=== PATIENT | male | born 1955 | race Caucasian/White ===

== ENCOUNTER 2022-11-26 03:30 | Inpatient (IN) | payer MEDICARE, SELFPAY ==
[2022-11-26] VITALS (54 sets, daily range): BP systolic 109–212; BP diastolic 61–139; PULSE 70–115; RESP 12–80; TEMP 36.5–37.1; O2SAT 74–100; BMI 26.6
--- NOTE | 2022-11-26 03:34 | DI.RAD.S_ITS ---
PROCEDURE: XR CHEST 1V INDICATIONS: Possible stroke TECHNIQUE: One view of the chest was acquired. COMPARISON: None. FINDINGS: Surgical changes and devices: None. Lungs and pleura: There is pulmonary vascular congestion. Atelectasis versus small infiltrates are noted in bilateral lower lung encinas. No pleural effusions or pneumothorax. Mediastinum: Mediastinal contours appear normal. Heart size is normal. Bones and chest wall: No suspicious bony lesions. Overlying soft tissues appear unremarkable. IMPRESSION: Mild congestion and mild bibasilar small infiltrate/atelectasis. No pleural effusion or pneumothorax. No significant discrepancies from preliminary reading. Dictated by: Ike Dumont M.D. on 11/26/2022 at 8:20 Approved by: Ike Dumont M.D. on 11/26/2022 at 8:21
--- NOTE | 2022-11-26 03:34 | DI.CT.S_ITS ---
PROCEDURE: CT STROKE INDICATIONS: Positive BE-FAST, Stroke symptoms TECHNIQUE: Noncontrast 4.5 mm thick angled axial sections acquired from the foramen magnum to the vertex, with coronal reformats. For radiation dose reduction, the following was used: automated exposure control, adjustment of mA and/or kV according to patient size. COMPARISON: None. FINDINGS: Image quality: Excellent. CSF spaces: Basal cisterns are patent. No extra-axial fluid collections. The ventricles are symmetric in size and shape. Brain: No intracranial bleeds or masses. There is cerebral volume loss for age, with resultant ventricular and sulcal prominence. There are periventricular and deep white matter chronic small vessel ischemic changes. There is intracranial internal carotid artery atherosclerosis. Skull and face: Calvarium and visualized facial bones appear intact, without suspicious lesions. Sinuses: Visualized sinuses and mastoids are clear. IMPRESSION: No acute large territorial infarct, intracranial hemorrhage or mass effect. Findings are concordant with preliminary interpretation provided by [facility]. This study fulfills neurological imaging criteria for inclusion or exclusion of acute stroke therapies based on available published neurological guidelines. Dictated by: Francisco Maldonado M.D. on 11/26/2022 at 7:46 Approved by: Francisco Maldonado M.D. on 11/26/2022 at 7:50
--- NOTE | 2022-11-26 03:35 | DI.CT.S_ITS ---
PROCEDURE: CT ANGIO HEAD AND NECK INDICATIONS: vomiting confusion HTN TECHNIQUE: After the administration of intravenous contrast, 1 mm thick sections acquired from the aortic arch through the [place]. Post-contrast 4.5 mm thick sections then re-acquired from the foramen magnum to the vertex. 3-dimensional jqzgvqx-fdzbohktw-[id number] (MIP) and/or volume rendering reformats were acquired of the central intracranial vasculature and neck separately. For radiation dose reduction, the following was used: automated exposure control, adjustment of mA and/or kV according to patient size. COMPARISON: None. FINDINGS: Image quality: Excellent. HEAD CT ANGIOGRAPHY: Anterior circulation: Intracranial internal carotid arteries are normal in size and flow. The flow within the paired anterior cerebral arteries is normal and symmetric. The flow within the middle cerebral arteries is normal and symmetric. The anterior communicating artery is seen. No aneurysms are seen. Posterior circulation: Visualized portions of the vertebral arteries demonstrate normal caliber, and join to form a normal appearing basilar artery. Flow within the posterior cerebral arteries is normal and symmetric. No aneurysms are seen. NECK CT ANGIOGRAPHY: Carotid system: The great vessels demonstrate a conventional anatomy as they arise from the aortic arch. The origins of the common carotid arteries appear patent. The common carotid arteries demonstrate normal caliber and courses. The bifurcation regions are both widely patent. The internal carotid arteries demonstrate normal calibers and courses. Atherosclerotic vascular calcifications are present throughout. Posterior circulation: The origins of the vertebral arteries both appear widely patent. Atherosclerosis at the takeoff of the right vertebral artery. The more superior extracranial portions of both vertebral arteries also demonstrate normal courses and calibers. They join to form a normal appearing basilar artery. There is focal calcification in moderate stenosis of the distal left vertebral artery immediately distal to the PICA origin with approximately 50% stenosis. Soft tissues: Visualized neck soft tissues demonstrate no suspicious abnormalities. Bones: No suspicious bony lesions. degenerative changes of the cervical spine.. Visualized cervical spine appears normally aligned. IMPRESSION: Atherosclerotic vascular calcifications are noted throughout, as described above. All major vessels remain patent in the head and neck without hemodynamically significant stenosis, occlusion, aneurysm or AVM. Any quantitative measurements of stenosis were performed using NASCET criteria. Dictated by: Francisco Maldonado M.D. on 11/26/2022 at 7:51 Approved by: Francisco Maldonado M.D. on 11/26/2022 at 7:58
[2022-11-26] MEDS: ONDANSETRON 4 MG/2 ML INJ IV ×2 (03:45→10:10)
[2022-11-26 03:48] LABS: Add Manual Diff / Slide Review NO; Basophils Absolute Auto 100 /uL (0-100); Basophils Percent Auto 0.7 % (0-2); Eosinophils Absolute Auto 100 /uL (0-450); Eosinophils Percent Auto 0.6 % (2-4); Hematocrit 51.4 % (41-53); Hemoglobin 17.5 g/dL (13.5-17.5); Lymphocytes Absolute Auto 2700 /uL (1100-4500); Lymphocytes Percent Auto 27.5 % (25-40); Mean Corpuscular HGB Conc 33.9 % (30-36); Mean Corpuscular Volume 97.4 fL (80-100); Monocytes Absolute Auto 1400 /uL (0-900); Monocytes Percent Auto 14.1 % (3-14); Neutrophils Absolute Auto 5600 /uL (1500-7000); Neutrophils Percent Auto 57.1 % (50-75); Platelet Count 225 X10^3/uL (150-400); Red Blood Cell Count 5.28 X10^6/uL (4.5-5.9); White Blood Cell Count 9.7 X10^3/uL (4.5-11.0)
[2022-11-26 03:52] LABS: Prothrombin Time 11.7 SECONDS (10.1-12.7)
[2022-11-26] MEDS: LORazepam 2 MG/ML INJ IV ×3 (03:52→20:43)
[2022-11-26 03:55] LABS: PTT Partial Thromboplastin Tim 31 SECONDS (26-36)
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
[2022-11-26 03:58] LABS: Albumin 5.1 g/dL (3.5-5.0); Albumin Globulin Ratio 1.1 (1.0-2.8); Alkaline Phosphatase 102 U/L (38-126); Aspartate Aminotransferase 87 IU/L (17-59); BUN Creatinine Ratio 10.1 (6-22); Bilirubin Total 1.1 mg/dL (0.2-1.3); Blood Urea Nitrogen 12 mg/dL (9-20); Calcium 9.3 mg/dL (8.4-10.2); Carbon Dioxide 12 mmol/L (22-32); Chloride 97 mmol/L (98-107); Creatine Kinase 304 U/L (55-170); Estimated Glomerular Filt Rate > 60 mL/min (>60); Globulin 4.6 g/dL (1.7-4.1); Glucose 134 mg/dL (80-110); HEMOLYSIS < 15 (0-50); Lactate (Lactic Acid) 10.5 mmol/L (0.7-2.1); Magnesium 1.6 mg/dL (1.6-2.3); Potassium 3.4 mmol/L (3.4-5.1); Sodium 138 mmol/L (137-145); Total Protein 9.7 g/dL (6.3-8.2)
[2022-11-26] MEDS: SODIUM CHLORIDE 0.9% 1,000 ML 1000 ML IV (04:00)
[2022-11-26 04:04] LABS: Alanine Aminotransferase 71 IU/L (<50)
[2022-11-26 04:09] LABS: Troponin I < 0.012 ng/mL (0.01-0.034)
[2022-11-26 04:33] LABS: Acetaminophen < 10 ug/mL (10-30); Ethanol (ETOH) < 10 mg/dL; Salicylate < 1.0 mg/dL (<20)
[2022-11-26 04:40] LABS: Procalcitonin 0.11 ng/mL (<0.5)
[2022-11-26] MEDS: SODIUM CHLORIDE 0.9% 500 ML 1000 ML IV (04:52)
[2022-11-26 05:00] LABS: Appearance Urine UA CLEAR; Bilirubin Urine UA NEGATIVE (NEGATIVE); Color Urine UA YELLOW; Glucose Urine UA NEGATIVE (Negative); Ketones Urine UA 1+ (NEGATIVE); Leukocyte Esterase Urine UA NEGATIVE (NEGATIVE); Nitrite Urine UA NEGATIVE (Negative); Occult Blood Urine UA 2+ (Negative); Protein Urine UA 2+ (Negative); Urobilinogen Urine UA 0.2 E.U./dL (0.2)
[2022-11-26 05:08] LABS: UR Morphine/Opiate cutoff 300 Negative (Negative); Ur Creatinine 20 (Normal); Urine Amphetamines Negative (Negative); Urine Barbiturates Negative (Negative); Urine Benzodiazepines Negative (Negative); Urine Cocaine Negative (Negative); Urine MDMA Negative (Negative); Urine Methadone Negative (Negative); Urine Methamphetamines Negative (Negative); Urine Oxycodone Negative (Negative); Urine Phencyclidine Negative (Negative); Urine Tetrahydrocannabinol Positive (Negative); Urine Tricyclic Antidepressant Negative (Negative); Urine pH 6 (Normal)
[2022-11-26 05:21] LABS: Bacteria Urine None Seen; Culture Indicated Urine Cult Not Indicated; RBC Urine None Seen (0-5/HPF); Squamous Epithelial Cell Urine None Seen (0-5/HPF); WBC Urine None Seen (0-5/HPF)
[2022-11-26 05:36] LABS: Prolactin 74.5 ng/mL (3.7-17.9)
--- NOTE | 2022-11-26 05:36 | PC.NURSE ---
2L IV bolus completed. Repeat lactate drawn and sent to lab. RN assisted patient to standing position to urinate. Pt needing lots of support to stand, also used walker. Pt needing lots of prompting. Very unsteady without assistance, body tremors noted. Linen on stretcher also noted to be soaked in urine. Bed cleaned and new linens placed on stretcher. Warm blankets provided to patient. Call light within reach.
[2022-11-26 05:43] LABS: Reflexed Lactate in 2 Hours Y
[2022-11-26 06:01] LABS: Lactate 2HR (Lactic Acid Rflx) 2.3 mmol/L (0.7-2.1)
[2022-11-26] MEDS: cefTRIAXone 2,000 MG in SODIUM CHLORIDE 0.9% 100 ML 200 MG IV (06:31)
[2022-11-26 06:45] LABS: NT-proBNP (BNP-Adult 18+) 1070 pg/mL (<125)
[2022-11-26] MEDS: AZITHROMYCIN 500 MG in DEXTROSE 5% IN WATER 250 ML 250 MG IV ×2 (06:51→17:36)
[2022-11-26 07:23] LABS: Adenovirus Not Detected (Not Detect); B. parapertussis Not Detected (Not Detecte); Bordetella pertussis Not Detected (Not Detecte); Chlamydophila pneumoniae Not Detected (Not Detect); Coronavirus 229E Not Detected (Not Detect); Coronavirus HKU1 Not Detected (Not Detect); Coronavirus NL 63 Not Detected (Not Detect); Coronavirus OC43 Not Detected (Not Detect); Human Metapneumovirus Not Detected (Not Detect); Human Rhinovirus/Enterovirus Not Detected (Not Detect); Influenza A Not Detected (Not Detect); Influenza B Not Detected (Not Detect); Mycoplasma pneumoniae Not Detected (Not Detect); Parainfluenza Virus 1 Not Detected (Not Detect); Parainfluenza Virus 2 Not Detected (Not Detect); Parainfluenza Virus 3 Not Detected (Not Detect); Parainfluenza Virus 4 Not Detected (Not Detect); Respiratory Syncytial Virus Not Detected (Not Detect); SARS- CoV-2 Not Detected (Not Detecte)
--- NOTE | 2022-11-26 08:36 | PC.NURSE ---
Patient reports history of sleep apnea. Patient desats when asleep into low 80's Dr Camarena aware. Patient resp even and unlabored.
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
[2022-11-26 10:24] LABS: MRSA (Nasal) PCR Not Detected (Not Detect)
[2022-11-26] MEDS: AMLODIPINE 5 MG TABLET PO (11:16)
[2022-11-26 12:18] LABS: Lactate (Lactic Acid) 0.9 mmol/L (0.7-2.1)
[2022-11-26] MEDS: SODIUM CHLORIDE 0.9% 1,000 ML 100 ML IV ×2 (13:58→23:59)
[2022-11-26] MEDS: THIAMINE 100 MG TABLET PO (14:02)
[2022-11-26] MEDS: levETIRAcetam 1,000 MG in SODIUM CHLORIDE 0.9% 100 ML 440 MG IV (14:46)
--- NOTE | 2022-11-26 14:51 | PC.NURSE ---
Addendum entered by Sonja Souza R.N. 11/26/22 15:11: When pt was seizing, RN pulled ativan from Pyxis under ativan order that was for CIWA protocol (not override pull). RN used this ativan for seizure - not for CIWA. Up until this point in shift, pt's CIWA scores were below 8. RN's priority was medicating pt to stop seizure as soon as possible. Original Note: At approximately 1408, RN assessed pt and started IV fluids. RN left the room to get pt's PO meds and when RN returned about 1410, pt was non-verbal, non-responsive, shaking and had blank stare in his eyes. RN called for help and when help promptly arrived, RN retrieved ativan 2mg from Pyxis. Another RN called the doctor, and the RN administered ativan with permission from provider. Provider came bedside. After giving ativan, pt's seizure ended. Pt vital signs taken and pt appeared to return to baseline shortly after, without injury.
[2022-11-26] MEDS: cefTRIAXone 1,000 MG in SODIUM CHLORIDE 0.9% 100 ML 200 MG IV (16:52)
--- NOTE | 2022-11-26 18:48 | PC.NURSE ---
Pt assessment and VS returned to baseline post-seizure.
[2022-11-27] VITALS (43 sets, daily range): BP systolic 109–173; BP diastolic 56–93; PULSE 69–88; RESP 6–28; TEMP 36.7–36.8; O2SAT 86–100
[2022-11-27] MEDS: levETIRAcetam 1,000 MG in SODIUM CHLORIDE 0.9% 100 ML 440 MG IV ×2 (02:01→14:09)
[2022-11-27] MEDS: LORazepam 2 MG/ML INJ IV (03:53)
[2022-11-27 06:11] LABS: Blood Urea Nitrogen 7 mg/dL (9-20); Calcium 7.6 mg/dL (8.4-10.2); Carbon Dioxide 27 mmol/L (22-32); Chloride 102 mmol/L (98-107); Estimated Glomerular Filt Rate > 60 mL/min (>60); Glucose 85 mg/dL (80-110); HEMOLYSIS 21 (0-50); Potassium 3.2 mmol/L (3.4-5.1); Sodium 135 mmol/L (137-145)
[2022-11-27 06:14] LABS: Add Manual Diff / Slide Review NO; Basophils Absolute Auto 0 /uL (0-100); Basophils Percent Auto 0.5 % (0-2); Eosinophils Absolute Auto 0 /uL (0-450); Eosinophils Percent Auto 0.6 % (2-4); Hematocrit 42.5 % (41-53); Hemoglobin 14.5 g/dL (13.5-17.5); Lymphocytes Absolute Auto 1100 /uL (1100-4500); Lymphocytes Percent Auto 14.4 % (25-40); Mean Corpuscular HGB Conc 34.2 % (30-36); Mean Corpuscular Hemoglobin 32.6 PG (26-34); Mean Corpuscular Volume 95.4 fL (80-100); Monocytes Absolute Auto 1000 /uL (0-900); Neutrophils Absolute Auto 5800 /uL (1500-7000); Neutrophils Percent Auto 72.5 % (50-75); Platelet Count 162 X10^3/uL (150-400); Red Blood Cell Count 4.46 X10^6/uL (4.5-5.9); Red Cell Distribution Width 14.7 % (11.6-14.8); White Blood Cell Count 7.9 X10^3/uL (4.5-11.0)
[2022-11-27] MEDS: MULTIVITAMIN 1 TABLET 1 TAB PO (08:02)
[2022-11-27] MEDS: AMLODIPINE 5 MG TABLET PO ×2 (08:02→17:11)
[2022-11-27] MEDS: THIAMINE 100 MG TABLET PO (08:02)
[2022-11-27] MEDS: POTASSIUM CHLORIDE 20 MEQ TAB 40 MEQ PO ×2 (09:06→14:20)
[2022-11-27] MEDS: FOLIC ACID 1 MG TABLET PO (09:07)
[2022-11-27 09:35] LABS: Magnesium 1.5 mg/dL (1.6-2.3)
[2022-11-27] MEDS: ENOXAPARIN 40 MG/0.4 ML SYRINGE SUBCUT (10:31)
--- NOTE | 2022-11-27 11:33 | PC.NURSE ---
Around 0900 RN spoke with hospitalist and asked provider about drawing Mg labs for this am and if RN could stop fluids and advance diet as tolerated. Provider told RN that these tests/interventions were appropriate.
[2022-11-27] MEDS: MAGNESIUM CHLORIDE 64 MG TABLET 128 MG PO (12:01)
--- NOTE | 2022-11-27 13:40 | PT.IIE ---
Current Diagnoses Alcohol dependence with withdrawal, unspecified (11/26/22) Surgical History (Last Updated 11/26/22 @ 10:46 by Dyllan Vasquez MD) History of appendectomy Medical History (Last Updated 11/26/22 @ 10:45 by Dyllan Vasquez MD) Alcohol dependence Dementia HTN (hypertension) Physical Therapy Inpatient Evaluation/Re-Eval M1 PT/OT-IP Prior Functional Status Start: 11/27/22 14:06 Freq: NEEDED Status: Active Protocol: Document 11/27/22 13:40 AB (Rec: 11/27/22 14:20 AB [id number]) Medical Review Prior Functional Status Medical History Reviewed Yes Communication able to make needs known Mobility and Gait pt stated that he is modified independent with all mobilities and ambulation without AD but uses a SPC for outdoor long distance walking Social History Household Members none Living Arrangements [facility] Facility Number of Floors (Floors) Two Floors Number of Stairs To Enter/Railing? pt lives at [facility] independent living : pt lives on the first floor Home Environment Standard Height Toilet,Walk in Shower Home Equipment Straight Cane,Hand Held Shower ,Grab Bars Near Toilet,Grab Bars In Shower Additional Social History Comment No assistance provided at the independent living but provides meals M2 PT-IP Current Condition Start: 11/27/22 14:06 Freq: NEEDED Status: Active Protocol: Document 11/27/22 13:40 AB (Rec: 11/27/22 14:20 AB [id number]) Physical Therapy Current Condition Current Condition Evaluation Date 11/27/22 Treatment Diagnosis alcohol withdrawal with seizure; difficulty in walking Onset Date 11/26/22 M3 PT-IP Subjective Start: 11/27/22 14:06 Freq: NEEDED Status: Active Protocol: Document 11/27/22 13:40 AB (Rec: 11/27/22 14:20 AB [email or web address]) Subjective Physical Therapy Visit Type Type Initial Evaluation Visit Start Time 13:40 Visit Stop Time 14:00 Total Visit Minutes 20 Number of BINDERY TECHNICIAN Visits 0 Physical Therapy Visit Comments Patient Comments pt is agreeable to do PT Therapy Pain Assessment Pain Present Pain Present Denied Pain M4 PT-IP Mobility and Gait Start: 11/27/22 14:06 Freq: NEEDED Status: Active Protocol: Document 11/27/22 13:40 AB (Rec: 11/27/22 14:20 AB [email or web address]) PT-Bed Mobility Assessment Supine to Sit Supine to Sit Standby Assistance Sit to Supine Sit to Supine Standby Assistance PT-Transfer Assessment Sit to and From Stand Sit to and from Stand Standby Assistance Equipment Transfer Assistive Device Gait Belt,Front Wheeled Walker Orthotic/Prosthetic Devices or Brace: No Comments Mobility Comments pt supine in bed and agreeable to do PT. completed supine to sit SBA. able to sit on EOB SBA. completed sit to stand SBA and ambulated in room using FWW SBA to CGA ~ 30 ft. presents with ataxic shuffling wide based gait. pt can be impulsive. assessed ambulation using SPC and completed ~ 20 ft SBA to CGA. Assessed ambulation without AD and completed 20 ft CGA and (+) LOB but able to recover with holding on to the wall. pt requested to go back to bed . completed sit to supine SBA. positioned pt in bed. call light and table placed within reach. Gait Assessment Gait Gait Assistance Required: Standby Assistance,Contact Guard Assist Distance (Feet) 30 Able to Maintain Weight Bearing Status Yes During Gait Assistive Devices Assistive Device None,Gait Belt,Straight Cane, Front Wheeled Walker Orthotic/Prosthetic Devices or Brace: No Gait Deviations General Gait Pattern Ataxic,Decreased Stride Length ,Decreased Feet Clearance,Step -to Gait,Wide Based Gait Factors Limiting Gait Function Factors Limiting Gait Function Decreased Activity Tolerance, Decreased Strength,Limited Range of Motion,Poor Balance, Poor Safety Awareness PT-Balance Assessment Sitting Balance and Reactions Static Sitting Balance Ability Normal Dynamic Sitting Balance Ability Good Standing Balance and Reactions Static Standing Balance Ability Fair Dynamic Standing Balance Ability Fair Device Used SPC M5 PT-IP Objective Assessments Start: 11/27/22 14:06 Freq: NEEDED Status: Active Protocol: Document 11/27/22 13:40 AB (Rec: 11/27/22 14:20 [facility] Orientation Orientation/Cognition Level of Alertness Alert Orientation Name,Place,Situation Language Function Ability No Deficits Noted Safety Awareness Decreased Safety Awareness Gross Range of Motion Lower Extremity ROM Assessment Within Functional Limits Strength Lower Extremity Strength Assessment Within Functional Limits Muscle Tone Muscle Tone WNL Yes M6 PT-IP Treatment Start: 11/27/22 14:06 Freq: NEEDED Status: Active Protocol: Document 11/27/22 13:40 AB (Rec: 11/27/22 14:20 [facility] Physical Therapy Treatment Education Education Provided Safety M7 PT-IP Assessment and Plan Start: 11/27/22 14:06 Freq: NEEDED Status: Active Protocol: Document 11/27/22 13:40 AB (Rec: 11/27/22 14:20 AB [id number]) PT Summary Assessment and Plan Potential Rehabilitation Potential Fair Status of Condition at Evaluation Evolving Summary Impairments Pain,ROM,Strength,Balance, Coordination,Sensation,Tone, Cognition,Bed Mobility, Transfers,Gait,Activity Tolerance Assessment Summary pt admitted for alcohol withrawal with seizure. pt currently requiring SBA for bed mobility. Assessed ambulation using FWW, SPC and without AD. Recommedning use of FWW/SPC at this time for safety. pt presents with unsteady shuffling gait and more evidenced without use of AD with (+) LOB. will continue to assess pt's progress while here in the hospital. pt will require HHPT when pt d/c home. Goals Bed Mobility Goal Independent Transfer Goal Independent,Cane,Front Wheeled Walker Gait Goal Independent,Cane,Front Wheel Walker Gait Distance 200 Other Goals improve transfers and ambulation without AD SBA 300 ft Days to Meet Goals 10 Frequency of Treatment Frequency Of Treatment Once a Day Treatment Plan Physical Therapy Treatment Plan Bed Mobility Training,Transfer Training,Gait Training, Therapeutic Exercise,Balance Retraining,Discharge Planning, Neuromuscular Re-ed, Coordination Retraining Precautions Other Precautions seizure Recommendations To Nursing Amount of Assist Needed 1 Person Assist Discharge Recommendations PT Discharge Recommendations Home with Assistance,Home Health Equipment Needed for Home Before FWW if not safe with SPC/ Discharge without AD Transportation Needs at Discharge Private Vehicle
--- NOTE | 2022-11-27 16:18 | CM.DANOTE ---
Initial DCP Assessment Note Pt is a 67 yo male, resident at [facility] in [place], arrives via EMS with altered mental status, only THC+ no BAL, PMH includes heavy alcohol use. Admitted for medical management of suspected alcohol w/d with w/d seizure PCP: Yasmeen Yeh Payer: FREDI TORRES Reviewed chart, pt discussed in multidisciplinary rounds this morning. Supposedly patient not welcome back to [facility] but not confirmed with [facility] staff so placed call to [facility] this morning and learned that patient lives in an independent apt and is welcome back upon discharge however has been given an eviction notice and is required to vacate by January 08, 2023 According to RN Savage, ex spouse Mitra P# [phone] is concerned about patient and has told staff that he cannot live with she and their daughter Shena Met w/patient this afternoon to introduce self and role. Patient A+O, says he plans to return to [facility] and knows he needs to move by Jan 08. Patient is hopeful to find his own apt vs house and says I have plenty of money. Discussed HH services and patient says he sees the PT at [facility] and may not need this service, asked that CM team check again tomorrow Patient denies having a problem with alcohol use says that I have cut way down, patient had been drinking approx 3 glasses of whiskey daily According to PT Grisel, patient is cleared for DC home, suggests HH and that a family member assist in patient's transition home, if someone is available Patient expects his daughter will agree to transport home and if not he can get a taxi home Plan: Discharge likely tomorrow[facility], w/family to transport, r/o need for HH RN updated VIANNEY Esquivel Discharge Planning/Care Management CM Discharge Assessment Start: 11/27/22 16:13 Freq: Status: Active Protocol: Document 11/27/22 16:13 JASS (Rec: 11/27/22 16:17 JASS [id number]) Discharge Planning Assessment Assigned Ammonia Refrigeration Technician VIANNEY Singer` DPOA/Assigned Designee Name Shena Rogers, daughter Contact Information [phone] Advance Directives? No History Provided By Patient,Medical Record Prior Living Arrangements [facility] Facility Comment [facility] Household Members none Type of transporation used prior to Relies on Others admit Comment Daughter provides transport Willing to Return to Facility? Yes Independent with ADL's Yes Is patient alert and oriented? Yes Needs Assistance With Meal Prep Patient/Family Preference Home with Home Health Barriers to Discharge No Discharge Plan Home Transportation Arrangement Daughter vs taxi Additional Comment r/o need for HH upon discharge . Patient unsure he wants HH says he gets PT at [facility]
--- NOTE | 2022-11-27 16:38 | PM.PN.1 ---
Subjective Subjective Interval history: Feeling much better. Eating well. No new concerns. In a good mood. Interacting appropriately. Exam Vital Signs (past 8 hours): - 11/27/22 09:00 11/27/22 09:01 11/27/22 09:01 Pulse Rate 80 82 Blood Pressure 156/93 H Pulse Oximetry 95 87 L Oxygen Delivery Method 11/27/22 09:39 11/27/22 09:39 11/27/22 10:00 Pulse Rate 85 Blood Pressure 152/76 H 144/75 H Pulse Oximetry Oxygen Delivery Method 11/27/22 10:00 11/27/22 10:30 11/27/22 10:31 Pulse Rate 87 87 87 Blood Pressure Pulse Oximetry Oxygen Delivery Method 11/27/22 10:31 11/27/22 10:40 11/27/22 11:00 Pulse Rate 86 Blood Pressure 149/86 H 141/82 H Pulse Oximetry Oxygen Delivery Method 11/27/22 12:00 11/27/22 11:30 11/27/22 11:43 Pulse Rate 88 Blood Pressure 148/76 H Pulse Oximetry Oxygen Delivery Method Room Air 11/27/22 12:00 11/27/22 12:00 11/27/22 12:30 Pulse Rate 86 Blood Pressure 120/77 147/83 H Pulse Oximetry Oxygen Delivery Method 11/27/22 12:30 11/27/22 13:00 11/27/22 13:00 Pulse Rate 83 80 Blood Pressure 143/80 H Pulse Oximetry Oxygen Delivery Method 11/27/22 16:00 Pulse Rate Blood Pressure Pulse Oximetry Oxygen Delivery Method Room Air Fraction of Inspired Oxygen 45 Oxygen Delivery Method Room Air Oxygen Flow Rate 8 Narrative Exam Narrative: Oriented to person, place, and time. NAD Fluent speech Normal head EOM normal, anicteric sclera and symmetric pupils. Neck supple, Normal thyroid, normal JVP. Lungs clear, normal effort,. Heart regular and without murmur. Abdomen soft , non-tender No leg edema No skin rash Normal cranial nerves and strength of arms and legs. Objective Labs 11/27/22 05:33 11/27/22 05:33 Labs: Laboratory Results - last 24 hr 11/27/22 11/27/22 11/27/22 05:33 05:33 05:33 WBC 7.9 RBC 4.46 L Hgb 14.5 Hct 42.5 MCV 95.4 MCH 32.6 MCHC 34.2 RDW 14.7 Plt Count 162 Neut % (Auto) 72.5 Lymph % (Auto) 14.4 L Dale % (Auto) 12.0 Eos % (Auto) 0.6 L Baso % (Auto) 0.5 Neut # (Auto) 5800 Lymph # (Auto) 1100 Dale # (Auto) 1000 H Eos # (Auto) 0 Baso # (Auto) 0 Sodium 135 L Potassium 3.2 L Chloride 102 Carbon Dioxide 27 BUN 7 L Creatinine 0.78 Estimated GFR > 60 BUN/Creatinine Ratio 9.0 Glucose 85 Calcium 7.6 L Magnesium 1.5 L PFSH Medical History (Updated 11/26/22 @ 10:45 by Dyllan Vasquez MD) Alcohol dependence Dementia HTN (hypertension) Surgical History (Updated 11/26/22 @ 10:46 by Dyllan Vasquez MD) History of appendectomy Family History (Updated 11/26/22 @ 10:46 by Dyllan Vasquez MD) Other Hypertension Social History (Updated 11/26/22 @ 10:47 by Dyllan Vasquez MD) household members: none Smoking Status: Former smoker alcohol intake: current additional social history: Lives a [facility]. No smoking, uses alcohol. Assessment & Plan Assessment & Plan narrative: 1. Possible alcohol withdrawal and withdrawal seizure, POA. On Keppra 1000 mg p.o. b.i.d. Possible component of low magnesium being contributory. Magnesium replacement completed, follow magnesium level. 2. Probable alcohol dependence, POA. Not ready to completely quit indicates that he is decreasing his intake. Only drinks whiskey on ice. 3. Untreated hypertension, POA. Being treated with hydralazine IV q.6h as needed. Initiate increase in amlodipine to 10 mg daily. Follow blood pressure readings. 4. Concern for Mild lactic acidosis, POA. Lactate level was normal. 5. Possible encephalopathy, POA. Check ammonia level in the morning. 6. Paranoid ideation, POA. Not currently. Continue to follow clinically. 7. Chest x-ray showing mild bibasilar infiltrate consistent with pneumonia. Has been on ceftriaxone and azithromycin. Transitioned to oral Augmentin. Follow labs. Follow labs and clinically. Code status: Full code DVT prophylaxis: Enoxaparin 40 mg subQ daily Surrogate decisionmaker: Shena Cunningham, daughter Quality VTE Deep Vein Thrombosis/Pulmonary Embolism Present on Admission: No
[2022-11-27] MEDS: levETIRAcetam 250 MG TABLET 1000 MG PO (21:43)
[2022-11-27] MEDS: AMOXICILLIN/CLAV 500/125 MG 1 TAB PO (21:43)
[2022-11-28 01:00] VITALS: BP 158/87; PULSE 78; RESP 17; TEMP 36.6; O2SAT 98
[2022-11-28 04:00] VITALS: BP 160/96; PULSE 80; RESP 19; TEMP 36.5; O2SAT 97
[2022-11-28 04:25] LABS: Add Manual Diff / Slide Review NO; Basophils Absolute Auto 0 /uL (0-100); Basophils Percent Auto 0.5 % (0-2); Eosinophils Absolute Auto 100 /uL (0-450); Eosinophils Percent Auto 1.3 % (2-4); Hematocrit 45.7 % (41-53); Hemoglobin 15.5 g/dL (13.5-17.5); Lymphocytes Absolute Auto 1100 /uL (1100-4500); Lymphocytes Percent Auto 16.1 % (25-40); Mean Corpuscular Hemoglobin 32.6 PG (26-34); Mean Corpuscular Volume 95.7 fL (80-100); Monocytes Absolute Auto 800 /uL (0-900); Monocytes Percent Auto 11.4 % (3-14); Neutrophils Absolute Auto 4900 /uL (1500-7000); Neutrophils Percent Auto 70.7 % (50-75); Platelet Count 172 X10^3/uL (150-400); Red Blood Cell Count 4.77 X10^6/uL (4.5-5.9); Red Cell Distribution Width 14.7 % (11.6-14.8)
[2022-11-28 04:29] LABS: Ammonia (NH3) < 9 umol/L (9-30)
[2022-11-28] MEDS: LORazepam 2 MG/ML INJ IV (04:29)
[2022-11-28 04:30] LABS: BUN Creatinine Ratio 11.7 (6-22); Blood Urea Nitrogen 9 mg/dL (9-20); Calcium 8.4 mg/dL (8.4-10.2); Carbon Dioxide 30 mmol/L (22-32); Chloride 101 mmol/L (98-107); Estimated Glomerular Filt Rate > 60 mL/min (>60); Glucose 106 mg/dL (80-110); HEMOLYSIS 25 (0-50); Magnesium 1.6 mg/dL (1.6-2.3); Potassium 3.6 mmol/L (3.4-5.1); Sodium 135 mmol/L (137-145)
[2022-11-28 05:03] VITALS: PULSE 80; RESP 17
[2022-11-28] MEDS: MAGNESIUM CHLORIDE 64 MG TABLET 128 MG PO (08:23)
[2022-11-28] MEDS: ENOXAPARIN 40 MG/0.4 ML SYRINGE SUBCUT (08:23)
[2022-11-28] MEDS: levETIRAcetam 250 MG TABLET 1000 MG PO (08:24)
[2022-11-28] MEDS: FOLIC ACID 1 MG TABLET PO (08:24)
[2022-11-28] MEDS: AMLODIPINE 5 MG TABLET 10 MG PO (08:24)
[2022-11-28] MEDS: THIAMINE 100 MG TABLET PO (08:24)
[2022-11-28] MEDS: AMOXICILLIN/CLAV 500/125 MG 1 TAB PO (08:25)
[2022-11-28] MEDS: VENLAFAXINE ER 75 MG CAP PO (08:25)
[2022-11-28 08:27] VITALS: BP 160/99; PULSE 79
[2022-11-28] MEDS: LOSARTAN 50 MG TABLET PO (08:27)
[2022-11-28] MEDS: MULTIVITAMIN 1 TABLET 1 TAB PO (08:28)
[2022-11-28 08:43] VITALS: BP 160/99; PULSE 84; RESP 19; TEMP 37.1; O2SAT 97
--- NOTE | 2022-11-28 10:50 | PT-IP ANOTE ---
Pt agitated and not appropriate to be seen at this time. Has been primarily SBA w/ [facility] or FWW w/ PT.
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
[2022-11-28] MEDS: LORazepam 0.5 MG TABLET PO (11:01)
--- NOTE | 2022-11-28 11:34 | CM.DPC ---
Addendum entered by VIANNEY Rutledge 11/28/22 12:02: ADD: Call from family to technical instructor stating [facility] stating pt cannot return until tomorrow 11/29. PAMELA called [facility] and confirmed pt lives in Independent side and therefore can d/c back whenever. SW updated RN and family should be here this afternoon to transport pt back. BF Original Note: DCP Discharge Home Per MD, pt is medically stable to discharge later today and no identified barriers to discharge. Per RN, pt anticipated that adult Dtr could transport him back to [facility]. SW called Dtr Shena and had Shena and her mom/pt's ex- on the phone and they had significant concerns with pt discharging back to [facility] independent with all the alcohol they found in his apartment and feel he needs a Psychiatrist or Inpt ETOH. SW discussed the barriers as pt is currently considered decisional, even if making unsafe or poor decisions, that pt cannot be forced into tx or placement. SW discussed that pt does not currently appear to be in a MH crisis and that pt's withdrawal type behaviors seem to have stabilized and pt ambulating and participating in discussions. SW discussed likely need for Dtr and ex- to get good supports for themselves in how to best have healthy boundaries with the pt. SW met bedside with pt and explained role and pt confirms he is aware he is medically stable to discharge today and states he just spoke to his Dtr and ex- and they are agreeable to transport him around 1500 today. PAMELA discussed pt's ETOH withdrawals and inquired if pt was interested in ETOH tx or resources and pt declines at this time stating I know how to manage my alcohol now. PAMELA discussed the increased medical risks of ongoing ETOH use and pt acknowledges understanding and seems in denial of his ETOH abuse. SW left msg for Dtr and ex- updating them on pt's current denial of ETOH resources and tx. Plan: Patient to d/c back to [facility] independent via family POV today around 1500 and pt states if they cannot transport for some reason then he would call a taxi. VIANNEY Rutledge
== END 2022-11-28 12:31 | disposition home or self-care (01) | DRG 896 ==
LOC: ED 04:19 → AC 06:28 → ICU 07:46
PROVIDERS: Hospitalist; Neuromusculoskeletal Medicine, Sports Medicine; Admitting Provider Internal Medicine; Emergency Provider Emergency Medicine; PCP Physician Assistant; Referring Provider Emergency Medicine; Visit Provider Internal Medicine
DX: F10.239 Alcohol dependence with withdrawal, unspecified (principal); J18.9 Pneumonia, unspecified organism; E87.20 Acidosis, unspecified; F23 Brief psychotic disorder; I10 Essential (primary) hypertension; E83.42 Hypomagnesemia; E87.6 Hypokalemia; F41.9 Anxiety disorder, unspecified; F32.A Depression, unspecified; F07.81 Postconcussional syndrome; G31.2 Degeneration of nervous system due to alcohol; Y90.0 Blood alcohol level of less than 20 mg/100 ml; Z87.891 Personal history of nicotine dependence
CPT/HCPCS: 36415; 70450; 70496; 70498; 71045; 80048; 80053; 80305; 80320; 80329; 81001; 81003; 82140; 82550; 82962; 83605; 83735; 83880; 84145; 84146; 84484; 85025; 85610; 85730; 87040; 87633; 87797; 93005; 96365; 96366; 96367; 96375; 97162; 99284; 99285; G0480; J0696; J1650; J1953; J2060; J2405; Q9967